=== PATIENT | female | born 1965 | race Caucasian/White ===

== ENCOUNTER → 2017-03-18 | Outpatient (CLI) | payer MEDICAID ==
--- NOTE | 2017-03-19 10:59 | RAD ---
DATE: 03/18/2017 EXAM: DIGITAL SCREEN BILAT W/CAD HISTORY: Isn't made screening mammogram. COMPARISON: 09/18/2015, 03/23/2014 This study was interpreted with the benefit of Computerized Aided Detection (CAD). The breast parenchyma is primarily fatty replaced. Breast parenchyma level density A. FINDINGS: Bilateral CC and MLO views were performed. There are no suspicious masses, areas of microcalcification, or areas of architectural distortion. Findings are stable from the prior mammogram. IMPRESSION: Negative bilateral mammograms. BI-RADS CATEGORY: 1 NEGATIVE RECOMMENDED FOLLOW-UP: 12M 12 MONTH FOLLOW-UP PQRS compliance statement: Patient information was entered into a reminder system with a target due date 03/18/2018 for the next mammogram. Mammography is a sensitive method for finding small breast cancers, but it does not detect them all and is not a substitute for careful clinical examination. A negative mammogram does not negate a clinically suspicious finding and should not result in delay in biopsying a clinically suspicious abnormality. "Our facility is accredited by the [employer]."
== END | disposition home or self-care (01) ==
LOC: MAMMO 15:30
PROVIDERS: ATTEND Family Medicine
DX: Z12.31 Encounter for screening mammogram for malignant neoplasm of breast (principal)
CPT/HCPCS: G0202; 77067

== ENCOUNTER → 2017-04-08 | Outpatient (CLI) | payer MEDICAID, MEDICARE ==
[~2017-04-08] MED LIST: BARIUM SULFATE 40% (APPLE) 148 GM PWD. PO ONE
--- NOTE | 2017-04-08 16:32 | RAD ---
Fluoroscopic swallow study 04/08/2017 Clinical indication: Dysphagia. Comparison: None. Findings/technique: Total fluoroscopy time of 1.6 minutes. Fluoroscopic video swallow study was performed in conjunction with a member of speech pathology. Patient self administered various barium consistencies. There is trace laryngeal penetration with thin barium. No evidence for aspiration. Note is made of mid cervical ACDF hardware. Impression: Trace laryngeal penetration without aspiration with thin barium consistencies. Please see separately dictated speech pathology report for additional findings and recommendations.
== END | disposition home or self-care (01) ==
LOC: RAD 15:43
PROVIDERS: ATTEND Otolaryngology
DX: R13.10 Dysphagia, unspecified (principal)
CPT/HCPCS: 74230; 92526; 92611; G8996; G8997; G8998

== ENCOUNTER 2018-04-10 13:49 | Emergency (ER) | payer MEDICAID ==
[2018-04-10 15:36] LABS: BILIRUBIN,URINE SMALL (NEG); CLARITY,URINE CLEAR; COLOR,URINE YELLOW; GLUCOSE,URINE NEGATIVE (NEG); NITRITE,URINE NEGATIVE (NEG); PROTEIN,URINE NEGATIVE (NEG-TRACE)
[2018-04-10 15:44] LABS: AMPHETAMINE/METHAMPHETAMINE POS (NEG); BARBITURATES NEG (NEG); BENZODIAZEPINES POS (NEG); CANNABINOIDS NEG (NEG); COCAINE NEG (NEG); ETHANOL, URINE NEG (NEG); METHADONE NEG (NEG); OPIATES NEG (NEG); PHENCYCLIDINE POS (NEG)
[2018-04-10 15:46] LABS: RBC,URINE 0 /HPF (0-2)
[2018-04-10 15:47] LABS: AMORPHOUS SEDIMENT,UR PRESENT /HPF; BACTERIA,URINE 0 /HPF (0-FEW); SQUAMOUS EPITHELIAL CELL,UR MOD /LPF
[2018-04-10] MEDS: IV NORMAL SALINE 1000ML BAG 1,000 ML IV (16:45)
[2018-04-10 16:57] LABS: ADD MAN DIFF? NO
[2018-04-10 16:59] LABS: BASO % 1 % (0-3); EOS # 0.1 x10^3/uL (0.0-0.7); EOS % 3 % (0-3); HEMATOCRIT 40.7 % (36.0-47.0); HEMOGLOBIN 13.7 g/dL (12.0-15.5); LYMPH # 2.2 x10^3/uL (1.0-4.8); LYMPH % 40 % (24-48); MEAN CORPUSCULAR HEMOGLOBIN 29 pg (25-35); MEAN CORPUSCULAR HGB CONC 34 g/dL (31-37); MEAN CORPUSCULAR VOLUME 87 fL (79-100); MONO # 0.3 x10^3/uL (0.0-1.1); MONO % 6 % (0-9); NEUT # 2.7 x10^3uL (1.8-7.7); NEUT % 50 % (31-73); PLATELET COUNT 248 x10^3/uL (140-400); RED BLOOD COUNT 4.66 x10^6/uL (3.50-5.40); WHITE BLOOD COUNT 5.4 x10^3/uL (4.0-11.0)
[2018-04-10 17:13] LABS: ANION GAP 7 (6-14); BLOOD UREA NITROGEN 18 mg/dL (7-20); BUN/CREATININE RATIO 23 (6-20); CALCIUM 8.4 mg/dL (8.5-10.1); CARBON DIOXIDE 28 mmol/L (21-32); CHLORIDE 106 mmol/L (98-107); CREATININE 0.8 mg/dL (0.6-1.0); GFR 74.7; GLUCOSE 93 mg/dL (70-99); POTASSIUM 3.2 mmol/L (3.5-5.1); SODIUM 141 mmol/L (136-145)
[2018-04-10 17:21] LABS: ALBUMIN 3.2 g/dL (3.4-5.0); ALBUMIN/GLOBULIN RATIO 0.9 (1.0-1.7); ALK PHOS 86 U/L (46-116); ALT (SGPT) 28 U/L (14-59); AST (SGOT) 18 U/L (15-37); TOTAL BILIRUBIN 0.2 mg/dL (0.2-1.0); TOTAL PROTEIN 6.7 g/dL (6.4-8.2)
[2018-04-10] MEDS: POTASSIUM CHLORIDE 20 MEQ TABLET.ER. PO (18:25)
== END 2018-04-10 19:00 | disposition home or self-care (01) ==
LOC: ER 19:00
DX: M25.572 Pain in left ankle and joints of left foot (principal); M54.2 Cervicalgia; F16.10 Hallucinogen abuse, uncomplicated; G47.411 Narcolepsy with cataplexy; Z88.2 Allergy status to sulfonamides; Z88.0 Allergy status to penicillin; Z88.8 Allergy status to other drugs, medicaments and biological substances
CPT/HCPCS: 36415; 72040; 73610; 80053; 80307; 81001; 85025; 96360; 96361; 96365; 99285-25; J7030

== ENCOUNTER → 2019-10-16 | Outpatient (CLI) | payer OTHER ==
[2018-04-10 18:00] VITALS: BP 113/67
--- NOTE | 2019-10-17 09:33 | RAD ---
DATE: October 16, 2019 EXAM: DIGITAL SCREEN BILAT W/CAD HISTORY: Screening study. COMPARISON: 2015 and 2017 This study was interpreted with the benefit of Computerized Aided Detection (CAD). FINDINGS: Breast Density: FATTY The breast parenchyma is primarily fatty replaced. Breast parenchyma level density A.. There are no dominant suspicious masses, suspicious microcalcifications or evidence of architectural distortion. IMPRESSION: No mammographic indicators for malignancy. BI-RADS CATEGORY: 1 NEGATIVE RECOMMENDED FOLLOW-UP: 12M 12 MONTH FOLLOW-UP PQRS compliance statement: Patient information was entered into a reminder system with a target due date October 17, 2020 for the next mammogram. Mammography is a sensitive method for finding small breast cancers, but it does not detect them all and is not a substitute for careful clinical examination. A negative mammogram does not negate a clinically suspicious finding and should not result in delay in biopsying a clinically suspicious abnormality. "Our facility is accredited by the [employer]." The patient's breast density may affect the ability of mammography to detect breast cancer. There are 4 categories of breast density, A, B, C and D. Breast density A means that most of the breast tissue is replaced with adipose tissue and therefore is not dense. Breast density B means that the breast tissue is mildly dense and scattered. Breast density C means that the breast tissue is heterogeneously dense. Breast density D means that the breast tissue is very dense. Breast densities especially C and D may decrease the sensitivity of mammography to detect breast cancer. Therefore, the patient may benefit from 3-D breast mammography (3D breast tomography) as a part of their screening mammogram. Insurance may or may not pay for this additional imaging. The patient's breast density based on today's mammogram is category A.
== END | disposition home or self-care (01) ==
LOC: MAMMO 15:15
PROVIDERS: ATTEND Family Medicine
DX: Z12.31 Encounter for screening mammogram for malignant neoplasm of breast (principal)
CPT/HCPCS: 77067

== ENCOUNTER → 2020-05-08 | Outpatient (CLI) | payer OTHER ==
[2018-04-10 18:00] VITALS: BP 113/67
--- NOTE | 2020-05-08 16:11 | KCIC ---
EXAMINATION: MRI LEFT KNEE WITHOUT IV CONTRAST CLINICAL HISTORY: Left knee pain and swelling. / History: Recent left knee injury when getting up from a seated position. TECHNIQUE: Multiplanar multisequential images obtained through the knee without intravenous contrast. COMPARISON: Left knee radiographs 04/19/2020 FINDINGS: MENISCI: Medial Meniscus: Intact. Lateral Meniscus: Intact. LIGAMENTS: ACL: Intact PCL: Intact MCL: Intact LCL Complex: Intact CARTILAGE: Medial Femoral Condyle: Small area(s) of low grade (less than 50% thickness) partial thickness cartilage loss and or fissuring Medial Tibial Plateau: Normal Lateral Femoral Condyle: Normal Lateral Tibial Plateau: Normal Patella: Small area(s) of full thickness cartilage loss and or fissuring with subchondral marrow reactive/cystic changes Trochlea: Small area(s) of low grade (less than 50% thickness) partial thickness cartilage loss and or fissuring TENDONS: The distal quadriceps and patellar tendons are intact. The popliteus tendon is intact. BONES AND MARROW: No evidence of acute fracture or suspicious marrow replacing process. MUSCLES: Muscle bulk and signal intensity within normal limits. JOINT FLUID AND SYNOVIUM: Moderate joint effusion. Mild synovitis. Small Pringle's cyst, partially ruptured superiorly. IMPRESSION: No meniscal or ligamentous injury. Mild chondral wear, greatest in the patella. Electronically signed by: Raphael Márquez DO (05/08/2020 4:08 PM) [id number]
== END | disposition home or self-care (01) ==
LOC: KCIC MRI 14:45
PROVIDERS: ATTEND Orthopaedic Surgery
DX: M71.22 Synovial cyst of popliteal space [Baker], left knee (principal); M25.462 Effusion, left knee; M65.88 Other synovitis and tenosynovitis, other site; M24.10 Other articular cartilage disorders, unspecified site
CPT/HCPCS: 73721

== ENCOUNTER → 2020-11-21 | Outpatient (CLI) | payer OTHER ==
[2018-04-10 18:00] VITALS: BP 113/67
--- NOTE | 2020-11-21 13:58 | RAD ---
Examination: 1. Bilateral digital diagnostic mammogram. 2. Limited right breast and axillary ultrasound. INDICATION: 55-year-old woman presents with a palpable lump in the right axillary region. She is due for screening. COMPARISON: 10/16/2019 bilateral mammogram TECHNIQUE: CC and MLO views of both breasts were obtained with 2-D and 3-D technique and reviewed wit h computer-aided detection. Targeted ultrasound of the right axilla in the patient's reported area of palpable concern was performed. FINDINGS: The breasts are almost entirely fatty replaced. There is no developing mass, suspicious calcification or architectural distortion in either breast. The BB marker identifying the area of palpable concern is in the right axilla, seen on the MLO view o nly. There is no mammographic correlate and no interval change. Targeted ultrasound of the right axilla revealed no adenopathy or sonographic correlate to the patien t's reported area of palpable concern. IMPRESSION: Negative bilateral mammogram on targeted right axillary ultrasound. No evidence of malignancy. Recommend clinical management which may include biopsy if there are any cl inically suspicious findings. In the absence of a clinically suspicious finding, return to routine sc reening next due in one year is recommended. BI-RADS Category 1 Negative Patient entered into a reminder system with targeted due date for next mammogram. Electronically signed by: Martínez Goel MD (11/21/2020 1:56 PM) [id number]
== END ==
LOC: MAMMO 13:00
PROVIDERS: ATTEND Family Medicine
DX: R92.2 Inconclusive mammogram (principal)
CPT/HCPCS: 76641; 77066; G0279; 77062

== ENCOUNTER → 2021-05-02 | Outpatient (CLI) | payer OTHER ==
[2018-04-10 18:00] VITALS: BP 113/67
--- NOTE | 2021-05-02 14:19 | RAD ---
EXAM: CT CHEST WITHOUT CONTRAST (LDCT LUNG CANCER SCREENING). HISTORY: Risk factors for pulmonary malignancy. Cigarette smoking. TECHNIQUE: CT of the chest was performed without intravenous contrast using a low-dose lung screening protocol. Findings analysis is based on ACR Lung-RADS v1.1. *One or more of the following individual ized dose reduction techniques were utilized for this examination: 1. Automated exposure control. 2. Adjustment of the mA and/or kV according to patient size. 3. Use of iterative reconstruction technique. COMPARISON: None. FINDINGS: The heart is normal in size. The aorta is normal in caliber. There is heavily calcified ath erosclerotic plaque involving the coronary arteries. There are calcified mediastinal and left hilar g ranulomas. No suspicious lymph node is seen. There is no pneumothorax or pleural effusion. There is posterior dependent and basilar atelectasis. T here is mild emphysema with right apical predominant bleb formation. There is a dominant nodule withi n the medial left lung base. There is a calcified granuloma with surrounding groundglass likely due t o scarring within the lateral left lower lobe. There is a 2 mm suspected fissural lymph node along th e right horizontal fissure. There is no acute or suspicious finding within the upper abdomen. There is no acute or suspicious oss eous lesion. IMPRESSION/RECOMMENDATION: 1. 5 mm nodule within the medial left lung base. ACR Lung-RADS category 2: CT in 12 months is recomme nded. 2. Mild emphysema. Electronically signed by: Cristela Whyte MD (05/02/2021 2:17 PM) [id number]
== END ==
LOC: CT 13:00
PROVIDERS: ATTEND Family Medicine
DX: Z12.2 Encounter for screening for malignant neoplasm of respiratory organs (principal); R91.1 Solitary pulmonary nodule; J43.9 Emphysema, unspecified; F17.200 Nicotine dependence, unspecified, uncomplicated; I25.10 Atherosclerotic heart disease of native coronary artery without angina pectoris
CPT/HCPCS: 71271